=== PATIENT | female | born 1985 | race Caucasian/White ===

== ENCOUNTER 2017-02-15 13:08 | Emergency (ER) | payer OTHER ==
[~2017-02-15] VITALS: Ht 172.7 cm; Wt 99.2 kg
[2017-02-15 13:14] VITALS: BP 119/77
[2017-02-15] MEDS ORDERED: DIPH,PERTUSS(ACELL),TET VAC/PF 0.5 ML IM-VACC ONE ×2 (13:39→14:00)
== END 2017-02-15 16:14 | disposition home or self-care (01) ==
LOC: ED 15:11
DX: S00.91XA Abrasion of unspecified part of head, initial encounter (principal); M62.838 Other muscle spasm; M54.2 Cervicalgia; W20.8XXA Other cause of strike by thrown, projected or falling object, initial encounter; Y93.89 Activity, other specified; Y92.69 Other specified industrial and construction area as the place of occurrence of the external cause; Y99.8 Other external cause status
CPT/HCPCS: 70450; 72125; 90471; 90715